=== PATIENT | male | born 1985 | race African-American/Black ===

== ENCOUNTER 2019-05-03 03:13 | Emergency (ER) | payer SELFPAY ==
[~2019-05-03] VITALS: Ht 180.3 cm; Wt 108.0 kg
--- NOTE | 2019-05-03 03:20 | NUR ---
ED Nurse Note: PT WALKED IN TO ED C/O ABD PAIN X1WK. DENIES NV. PT VSS, NAD, FAMILY AT BEDSIDE.
[2019-05-03] MEDS ORDERED: DICYCLOMINE HCL10 MG ORAL (03:48)
[2019-05-03] MEDS ORDERED: IMODIUM2 MG ORAL (03:50)
[2019-05-03 03:51] VITALS: BP 132/87
[2019-05-03] MEDS ORDERED: Lidocaine 2% Visc 15ml soln ORAL ONE (04:00)
[2019-05-03] MEDS ORDERED: Dicyclomine HCl 10mg/5ml oral soln ORAL ONE (04:00)
--- NOTE | 2019-05-03 04:00 | NUR ---
ER DISCHARGE NOTE: Patient is cleared to be discharged per ERMD, pt is aox4, on room air, with stable vital signs. pt was given dc and prescription instructions, pt was able to verbalize understanding, pt id band removed without complications. pt is able to ambulate with steady gait. pt took all belongings.
--- NOTE | 2019-05-04 05:59 | Emergency Room Report ---
History of Present Illness General Chief Complaint: Abdominal Pain Source: Patient Present Illness HPI Patient is a 34-year-old male presents after increased abdominal discomfort. He reports having gradual onset of symptoms. Reports having increased diarrhea as well as abdominal distention. Denies any vomiting. Denies any bloody stools. Allergies: Coded Allergies: No Known Allergies (Unverified , 05/03/19) Patient History Reviewed Nursing Documentation: PMH: Agreed; PSxH: Agreed Nursing Documentation-PMH Past Medical History: No History, Except For Hx Asthma: Yes Review of Systems All Other Systems: negative except mentioned in HPI Physical Exam Vital Signs Date Time Temp Pulse Resp B/P (MAP) Pulse Ox O2 Delivery O2 Flow Rate FiO2 05/03/19 03:18 98.8 86 16 139/88 (105) 95 Room Air Sp02 EP Interpretation: reviewed, normal General Appearance: normal inspection, well appearing, no apparent distress, alert, GCS 15 Head: atraumatic ENT: normal ENT inspection, hearing grossly normal, normal voice Neck: normal inspection, full range of motion, supple, no bony tend Respiratory: normal inspection, lungs clear, normal breath sounds, no respiratory distress, no retraction, no wheezing Cardiovascular #1: regular rate, rhythm, no edema Gastrointestinal: normal inspection, normal bowel sounds, non tender, soft, no guarding, no hernia Genitourinary: no CVA tenderness Musculoskeletal: normal inspection, back normal, normal range of motion Neurologic: alert, motor strength/tone normal, bankruptcy attorney III-XII nml as tested, oriented x3, responsive, speech normal, normal inspection Psychiatric: normal inspection, judgement/insight normal, mood/affect normal Medical Decision Making Diagnostic Impression: Primary Impression: Nonspecific abdominal pain ER Course Patient presented for abdominal pain. Differential diagnoses included ischemic bowel, appendicitis, perforated viscus, abdominal aortic aneurysm, inferior myocardial infarction, viral gastroenteritis among others. patient has a benign exam and does not appear to require any imaging or laboratory testing at this time. Patient appears to have a mild gastroenteritis. He was given medications for symptomatic management. Patient was advised to follow-up with primary care physician for recheck. Is advised to return if worse. The patient is advised to follow up with primary care doctor in 1-2 days. Patient is advised to return if any worsening condition or if any changes in status that are concerning. This report is dictated with [employer] consultant software which may occasionally lead to discrepancies related to use of this software. Last Vital Signs Date Time Temp Pulse Resp B/P (MAP) Pulse Ox O2 Delivery O2 Flow Rate FiO2 05/03/19 04:00 98.6 69 20 98 Room Air 05/03/19 03:51 132/87 Status: improved Disposition: HOME, SELF-CARE Condition: Stable Scripts Loperamide HCl (Loperamide) 2 Mg Capsule 2 MG ORAL Q4H for diarrhea, #20 CAP 0 Refills Prov: Lokesh Zepeda MD 05/03/19 Dicyclomine Hcl* (DICYCLOMINE HCL*) 10 Mg Capsule 10 MG ORAL QID, #20 CAP Prov: Lokesh Zepeda MD 05/03/19 Referrals: NOT CHOSEN IPA/MD,REFERRING (PCP) Departure Forms: Return to Work Return to Work in (Days): 3 Patient Instructions: Abdominal Pain, Adult Additional Instructions: Follow up with your doctor for recheck. Return if worse. Avoid dairy products. Lokesh Zepeda MD May 04, 2019 05:59
== END 2019-05-03 04:00 | disposition home or self-care (01) ==
LOC: EMR 03:31
DX: R10.9 Unspecified abdominal pain (principal); J45.909 Unspecified asthma, uncomplicated
CPT/HCPCS: 99282